=== PATIENT | female | born 1955 | race Caucasian/White ===

== ENCOUNTER 2017-02-04 15:19 | Emergency (ER) | payer MEDICAID, OTHER ==
[~2017-02-04] VITALS: Ht 147.3 cm; Wt 106.7 kg
[~2017-02-04 15:19] MED LIST: ATEN25TA2 PO; METF500T64 PO
[2017-02-04 15:49] VITALS: BP 158/71
--- NOTE | 2017-02-04 20:48 | NUR ---
PT TAKEN TO BED 3
--- NOTE | 2017-02-04 20:53 | NUR ---
Dr. Kennedy evaluating patient at bedside.
[2017-02-04] MEDS ORDERED: KETOROLAC 30 MG/ML VIAL IM ONE (21:00)
[2017-02-04] MEDS ORDERED: HYDROcodone/APAP 5/325 MG 1 TAB TAB PO ONE (21:00)
--- NOTE | 2017-02-04 21:00 | NUR ---
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 FREDY: CHF, RA, MENTALLY CHALLENGED; SKIN IS PINK/WARM/DRY. LT. LEG EDEMA +3 WITH REDNESS; AAOX4 WITH EVEN AND STEADY GAIT; LUNGS CLEAR BL; HR EVEN AND REGULAR; PT DENIES ANY FEVER, CP, SOB, OR COUGH AT THIS TIME; PATIENT STATES PAIN OF 4/10 AT THIS TIME; VSS; PATIENT POSITIONED FOR COMFORT; HOB ELEVATED; BEDRAILS UP X2; BED DOWN. ER MD MADE AWARE OF PT STATUS.
[2017-02-04 21:55] LABS: ANION GAP 10.1 (8-16); CALCIUM 8.3 mg/dL (8.5-10.1); CARBON DIOXIDE 28.7 mmol/L (21-32); CREATININE 0.8 mg/dL (0.6-1.3); POTASSIUM 3.8 mmol/L (3.5-5.1)
--- NOTE | 2017-02-04 22:30 | NUR ---
Patient discharged with v/s stable. Written and verbal after care instructions given and explained. Patient alert, oriented and verbalized understanding of instructions. Wheel Chair Assisted with to car. All questions addressed prior to discharge. ID band removed. Patient advised to follow up with PMD. Rx of KEFLEX 500 MG, TYLENOL NO.3 given. Patient educated on indication of medication including possible reaction and side effects. Opportunity to ask questions provided and answered.
[2017-02-04 22:33] VITALS: BP 145/70
== END 2017-02-04 22:30 | disposition home or self-care (01) ==
LOC: MED 15:19
DX: S80.812A Abrasion, left lower leg, initial encounter (principal); R60.0 Localized edema; I11.0 Hypertensive heart disease with heart failure; I50.9 Heart failure, unspecified; E11.9 Type 2 diabetes mellitus without complications; Z90.49 Acquired absence of other specified parts of digestive tract; Z98.890 Other specified postprocedural states; X58.XXXA Exposure to other specified factors, initial encounter; Y93.89 Activity, other specified; Y92.89 Other specified places as the place of occurrence of the external cause; Y99.8 Other external cause status
CPT/HCPCS: 36415; 80048; 93970; 96372; 99285; J1885

== ENCOUNTER 2022-04-04 11:40 | Emergency (ER) | payer OTHER ==
[~2022-04-04] VITALS: Ht 147.3 cm; Wt 91.7 kg
[~2022-04-04 11:40] MED LIST changes: +GLU500 PO; -METF500T64 PO
[2022-04-04 11:42] VITALS: BP 148/76
--- NOTE | 2022-04-04 12:06 | NUR ---
PATIENT AMBULATED TO BED 09 WITH STEADY/EVEN GAIT
[2022-04-04 13:46] LABS: BASOPHILS % (AUTO) 1.2 % (0.0-2.0); EOSINOPHILS # (AUTO) 0.2 K/uL (0-0.4); EOSINOPHILS % (AUTO) 4.2 % (0.0-4.0); HEMATOCRIT 44.8 % (36-48); LYMPHOCYTES # (AUTO) 0.9 K/uL (2.5-16.5); LYMPHOCYTES % (AUTO) 23.3 % (20.5-51.1); MEAN CORPUSCULAR HEMOGLOBIN 31 pg (27-31); MEAN CORPUSCULAR HGB CONC 34 g/dL (33-37); MEAN CORPUSCULAR VOLUME 92.2 fL (80-94); MONOCYTES # (AUTO) 0.4 K/uL (0.8-1.0); MONOCYTES % (AUTO) 10.6 % (1.7-9.3); NEUTROPHILS # (AUTO) 2.2 K/uL (1.8-7.7); NEUTROPHILS % (AUTO) 60.7 % (42.2-75.2); PLATELET COUNT (AUTO) 123 K/uL (140-450); RED BLOOD CELL COUNT(AUTO) 4.85 MIL/uL (4.20-5.40); WHITE BLOOD COUNT (AUTO) 3.7 K/uL (4.8-10.8)
[2022-04-04 14:07] LABS: ALBUMIN 3.3 g/dL (3.4-5.0); ANION GAP 12.1 (8-16); CARBON DIOXIDE 29.6 mmol/L (21-32); CREATININE 0.5 mg/dL (0.6-1.3); POTASSIUM 3.7 mmol/L (3.5-5.1); TOTAL BILIRUBIN 0.7 mg/dL (0.0-1.0)
--- NOTE | 2022-04-04 14:31 | NUR ---
PT C/O SWELLING TO LEG X1 WEEK. SENT BY DIRECTOR OF CONVENTION SERVICES
[2022-04-04 16:21] VITALS: BP 122/80
--- NOTE | 2022-04-04 16:21 | NUR ---
Patient discharged with v/s stable. Written and verbal after care instructions given and explained. Patient verbalized understanding. Ambulatory with steady gait. All questions addressed prior to discharge. Advised to follow up with PMD.
== END 2022-04-04 16:21 | disposition home or self-care (01) ==
LOC: MED 11:40
DX: M71.21 Synovial cyst of popliteal space [Baker], right knee (principal); R22.43 Localized swelling, mass and lump, lower limb, bilateral; I10 Essential (primary) hypertension; I50.9 Heart failure, unspecified; Z90.49 Acquired absence of other specified parts of digestive tract; Z98.890 Other specified postprocedural states
CPT/HCPCS: 36415; 80053; 83880; 84484; 85025; 93005; 93970; 99285; Q0092; 99284